=== PATIENT | female | born 1990 | race African-American/Black ===

== ENCOUNTER 2017-05-15 18:51 | Emergency (ER) | payer MEDICAID ==
[2017-05-15 19:09] VITALS: BP 117/64
--- NOTE | 2017-05-15 19:27 | ER Document Report ---
ED Medical Screen (RME) - General Chief Complaint: Lower Abdominal Pain Stated Complaint: ABDOMINAL PAIN Time Seen by Provider: 05/15/17 19:21 Notes: Patient says that she is having lower abdominal pain bilaterally that started this morning. She has vomited and is also having diarrhea. A couple of coworkers have similar symptoms. No one in her family is sick with similar symptoms. Denies any UTI symptoms. Denies any fever. Patient has had no current vaginal bleeding. Her last menstrual cycle was in the early part of March she had no bleeding at all in April. TRAVEL OUTSIDE OF THE [place] IN LAST 30 DAYS: No - Related Data Allergies/Adverse Reactions: No Known Allergies Allergy (Verified 05/15/17 19:09) Past Medical History Renal/ Medical History: Denies: Hx Peritoneal Dialysis Physical Exam - Vital signs Vitals: Temp Pulse Resp BP Pulse Ox 99.2 F 71 16 117/64 99 05/15/17 19:08 05/15/17 19:08 05/15/17 19:08 05/15/17 19:08 05/15/17 19:08 Course - Vital Signs Vital signs: Temp Pulse Resp BP Pulse Ox 99.2 F 71 16 117/64 99 05/15/17 19:08 05/15/17 19:08 05/15/17 19:08 05/15/17 19:08 05/15/17 19:08
[2017-05-15 20:33] LABS: ABSOLUTE EOSINOPHILS # (AUTO) 0.1 10^3/uL (0.0-0.6); ABSOLUTE MONOCYTES (AUTO) 0.8 10^3/uL (0.1-1.4); ABSOLUTE NEUT (AUTO) 4.5 10^3/uL (1.7-8.2); BASOPHILS % (AUTO) 0.3 % (0-2); EOSINOPHILS % (AUTO) 1.2 % (0-6); HEMATOCRIT 39.7 % (36.0-47.0); HEMOGLOBIN 13.3 g/dL (12.0-15.5); HGB HCT DIFFERENCE 0.2; LYMPHOCYTES % (AUTO) 35.5 % (13-45); MEAN CORPUSCULAR HEMOGLOBIN 26.4 pg (27.0-33.4); MEAN CORPUSCULAR HGB CONC 33.6 g/dL (32.0-36.0); MEAN CORPUSCULAR VOLUME 79 fl (80-97); MONOCYTES % (AUTO) 8.9 % (3-13); RED BLOOD COUNT 5.05 10^6/uL (3.72-5.28); RED CELL DISTRIBUTION WIDTH 14.5 % (11.5-14.0); SEGMENTED NEUTROPHILS % (AUTO) 54.1 % (42-78); WHITE BLOOD COUNT 8.4 10^3/uL (4.0-10.5)
[2017-05-15 20:37] LABS: APPEARANCE,URINE SLIGHTLY-CLOUDY; BILIRUBIN,URINE NEGATIVE (NEGATIVE); GLUCOSE, URINE NEGATIVE (NEGATIVE); KETONES,URINE NEGATIVE (NEGATIVE); LEUKOCYTE ESTERASE,URINE TRACE (NEGATIVE); NITRITE,URINE NEGATIVE (NEGATIVE); PROTEIN,URINE NEGATIVE (NEGATIVE); URINE SPECIFIC GRAVITY 1.027
[2017-05-15 20:48] LABS: ALANINE AMINOTRANSFERASE 23 U/L (9-52); ALKALINE PHOSPHATASE 59 U/L (38-126); ANION GAP 7 (5-19); ASPARTATE AMINO TRANSFERASE 16 U/L (14-36); BILIRUBIN,DIRECT 0.3 mg/dL (0.0-0.4); BILIRUBIN,TOTAL 0.3 mg/dL (0.2-1.3); BLOOD UREA NITROGEN 11 mg/dL (7-20); CALCIUM 9.6 mg/dL (8.4-10.2); CARBON DIOXIDE 25 mmol/L (22-30); CHLORIDE 104 mmol/L (98-107); CREATININE RESULT 0.79 mg/dL (0.52-1.25); GLUCOSE 81 mg/dL (75-110); POTASSIUM 4.4 mmol/L (3.6-5.0); SODIUM 135.8 mmol/L (137-145); TOTAL PROTEIN 7.4 g/dL (6.3-8.2)
--- NOTE | 2017-05-15 22:04 | ER Document Report ---
ED GI/ - General Chief Complaint: Lower Abdominal Pain Stated Complaint: ABDOMINAL PAIN Time Seen by Provider: 05/15/17 19:21 Notes: The patient is a 26-year-old female who presents with a few days of suprapubic abdominal pain. Her last menstrual period was in March. She is unsure if she is . She denies nausea, vomiting, dysuria, vaginal bleeding, fevers, flank pain, rash, vaginal discharge, diarrhea or constipation. TRAVEL OUTSIDE OF THE [place] IN LAST 30 DAYS: No - Related Data Allergies/Adverse Reactions: No Known Allergies Allergy (Verified 05/15/17 19:09) Past Medical History - General Information source: Patient - Social History Smoking Status: Never Smoker Chew tobacco use (# tins/day): No Frequency of alcohol use: None Drug Abuse: None Family History: Reviewed & Not Pertinent Patient has suicidal ideation: No Patient has homicidal ideation: No Renal/ Medical History: Denies: Hx Peritoneal Dialysis Surgical Hx: Negative - Immunizations Hx Diphtheria, Pertussis, Tetanus Vaccination: Yes Review of Systems - Review of Systems Notes: REVIEW OF SYSTEMS: CONSTITUTIONAL: -fevers, -chills EENT: -eye pain, -difficulty swallowing, -nasal congestion CARDIOVASCULAR:-chest pain, -syncope. RESPIRATORY: -cough, -SOB GASTROINTESTINAL: +lower abdominal pain, -nausea, -vomiting, -diarrhea GENITOURINARY: -dysuria, -hematuria MUSCULOSKELETAL: -back pain, -neck pain SKIN: -rash or skin lesions. HEMATOLOGIC: -easy bruising or bleeding. LYMPHATIC: -swollen, enlarged glands. NEUROLOGICAL: -altered mental status or loss of consciousness, -headache, - neurologic symptoms PSYCHIATRIC: -anxiety, -depression. ALL OTHER SYSTEMS REVIEWED AND NEGATIVE. Physical Exam - Vital signs Vitals: Temp Pulse Resp BP Pulse Ox 99.2 F 71 16 117/64 99 05/15/17 19:08 05/15/17 19:08 05/15/17 19:08 05/15/17 19:08 05/15/17 19:08 - Notes Notes: PHYSICAL EXAMINATION: GENERAL: Well-appearing, well-nourished and in no acute distress. HEAD: Atraumatic, normocephalic. EYES: Pupils equal round and reactive to light, extraocular movements intact, sclera anicteric, conjunctiva are normal. ENT: nares patent, oropharynx clear without exudates. Moist mucous membranes. NECK: Normal range of motion, supple without lymphadenopathy LUNGS: Breath sounds clear to auscultation bilaterally and equal. No wheezes rales or rhonchi. HEART: Regular rate and rhythm without murmurs ABDOMEN: Soft, no abdominal tenderness, normoactive bowel sounds. No guarding, no rebound. No masses appreciated. EXTREMITIES: Normal range of motion, no pitting or edema. No cyanosis. NEUROLOGICAL: Cranial nerves grossly intact. Normal speech, normal gait. Normal sensory and motor exams. PSYCH: Normal mood, normal affect. SKIN: Warm, Dry, normal turgor, no rashes or lesions noted. Course - Re-evaluation Re-evalutation: 05/15/17 23:01 Pt with several days of lower abdominal pain, diarrhea, nausea and vomiting. Her last menstrual period was ~8 weeks ago and she is . Patient is adamant that she had to leave because her ride was picking her up. Told her about the risk of missing an ectopic , but patient is adamant that she wants to leave and not wait for an ultrasound. She appears well and has no abdominal tenderness. She understands the risks of leaving and has capacity to make her own decisions. Urged her to return anytime to the emergency room for reevaluation and ultrasound. Also provided patient follow- up at OB. - Vital Signs Vital signs: Temp Pulse Resp BP Pulse Ox 99.2 F 71 16 117/64 99 05/15/17 19:08 05/15/17 19:08 05/15/17 19:08 05/15/17 19:08 05/15/17 19:08 - Laboratory Result Diagrams: 05/15/17 20:05 05/15/17 20:05 Laboratory results interpreted by me: 05/15/17 05/15/17 05/15/17 20:05 20:05 20:05 MCV 79 L MCH 26.4 L RDW 14.5 H Sodium 135.8 L Beta HCG, Quant [id number] H Urine Urobilinogen 2.0 H Ur Leukocyte Esterase TRACE H Discharge - Discharge Clinical Impression: Abdominal pain during Qualifiers: Trimester: first trimester Qualified Code(s): O26.891 - Other specified related conditions, first trimester Condition: Stable Disposition: AGAINST MEDICAL ADVICE Additional Instructions: Return anytime to the emergency room for an ultrasound to make sure that the fetus is located inside the uterus. If the fetus is not located inside the uterus, you may have an ectopic which may kill you. Follow-up with the [facility]. Referrals: DONOVAN WHITE MD [ACTIVE STAFF] - Follow up as needed
== END 2017-05-15 23:00 | disposition left against medical advice (07) ==
LOC: ER 18:51
DX: O26.891 Other specified pregnancy related conditions, first trimester (principal); R10.2 Pelvic and perineal pain; Z3A.01 Less than 8 weeks gestation of pregnancy
CPT/HCPCS: 36415; 80053; 81001; 84702; 85025; 99284